=== PATIENT | female | born 1945 | race Caucasian/White ===

== ENCOUNTER 2016-11-04 21:52 | Emergency (ER) | payer MEDICARE, OTHER ==
[2016-11-05 07:56] LABS: HEMOGLOBIN 15.4 gm/dl (12.3-15.3); RED BLOOD COUNT 5.13 M/UL (4.00-5.10); WHITE BLOOD COUNT 6.7 K/UL (4.5-11.0)
== END 2016-11-05 10:10 | disposition home or self-care (01) ==
LOC: ER1 21:52
PROVIDERS: Physician Assistant
DX: J06.9 Acute upper respiratory infection, unspecified (principal); E11.22 Type 2 diabetes mellitus with diabetic chronic kidney disease; I12.9 Hypertensive chronic kidney disease with stage 1 through stage 4 chronic kidney disease, or unspecified chronic kidney disease; N18.9 Chronic kidney disease, unspecified; J44.9 Chronic obstructive pulmonary disease, unspecified; Z88.5 Allergy status to narcotic agent; Z88.8 Allergy status to other drugs, medicaments and biological substances
CPT/HCPCS: 36415; 71020; 80053; 81001; 85025; 87040; 87081; 87880; 99283

== ENCOUNTER → 2020-09-28 | Outpatient (CLI) | payer MEDICARE, OTHER ==
[~2020-09-28] MED LIST: ADVAIR 250-501 EACH INH; ALBUTEROL S5 MG/1 ML INH; ASPIRIN CHEWABL81 MG PO; BUMETANIDE1 MG PO; COREG 3.125M3.125 MG PO; COZAAR100 MG PO; CYANOCOBAL1000 MCG/1 INJ; FEOSOL325 MG PO; GOLYTELY 40004000 ML PO; HYDRALAZINE HCL50 MG PO; IMDUR ER TAB 6060 MG PO; LINZESS145 MCG PO; NITROSTAT0.4 MG SL; NOVOLOG 10100 UNITS1 INJ; PATADAY2.5 ML EYEBOTH; PROLIA INJ60 MG/1 ML SC; RANEXA500 MG PO; ROCALTROL CA0.25 MCG PO; VITAMIN D31000 UNI1 PO; ZANTAC150 MG PO; ZYLOPRIM 300 M300 MG PO
== END ==
LOC: EXRD 13:39
DX: M81.0 Age-related osteoporosis without current pathological fracture (principal); M85.88 Other specified disorders of bone density and structure, other site
CPT/HCPCS: 77080

== ENCOUNTER → 2021-04-20 | Outpatient (CLI) | payer MEDICARE, OTHER | LOC: LAB 10:15 | PROVIDERS: Internal Medicine Nephrology | DX: E11.21 Type 2 diabetes mellitus with diabetic nephropathy (principal); E11.22 Type 2 diabetes mellitus with diabetic chronic kidney disease; N18.4 Chronic kidney disease, stage 4 (severe) | CPT/HCPCS: 36415; 80048; 84681 ==

== ENCOUNTER → 2021-05-16 | Day surgery (SDC) | payer MEDICARE, OTHER | END | disposition home or self-care (01) | LOC: OR 06:39 | DX: K22.2 Esophageal obstruction (principal); K44.9 Diaphragmatic hernia without obstruction or gangrene; R13.14 Dysphagia, pharyngoesophageal phase; K21.9 Gastro-esophageal reflux disease without esophagitis; G47.33 Obstructive sleep apnea (adult) (pediatric); I25.10 Atherosclerotic heart disease of native coronary artery without angina pectoris; I10 Essential (primary) hypertension; E11.9 Type 2 diabetes mellitus without complications; E66.01 Morbid (severe) obesity due to excess calories; Z68.41 Body mass index [BMI] 40.0-44.9, adult; Z95.1 Presence of aortocoronary bypass graft; Z88.5 Allergy status to narcotic agent; Z79.82 Long term (current) use of aspirin; Z79.4 Long term (current) use of insulin; Z79.899 Other long term (current) drug therapy; Z88.0 Allergy status to penicillin | CPT/HCPCS: 82962; J2704; J7040 ==

== ENCOUNTER → 2021-10-22 | Outpatient (CLI) | payer MEDICARE, OTHER | LOC: SLEEP-COR 14:59 | DX: J30.9 Allergic rhinitis, unspecified (principal); I20.9 Angina pectoris, unspecified; I44.30 Unspecified atrioventricular block; I10 Essential (primary) hypertension; G47.33 Obstructive sleep apnea (adult) (pediatric) | CPT/HCPCS: 95810 ==

== ENCOUNTER → 2021-12-28 | Outpatient (CLI) | payer MEDICARE, OTHER | LOC: MAMO 08:00 | DX: Z12.31 Encounter for screening mammogram for malignant neoplasm of breast (principal); I25.10 Atherosclerotic heart disease of native coronary artery without angina pectoris; I12.9 Hypertensive chronic kidney disease with stage 1 through stage 4 chronic kidney disease, or unspecified chronic kidney disease; E11.22 Type 2 diabetes mellitus with diabetic chronic kidney disease; N18.4 Chronic kidney disease, stage 4 (severe); E78.2 Mixed hyperlipidemia; E11.42 Type 2 diabetes mellitus with diabetic polyneuropathy; G47.33 Obstructive sleep apnea (adult) (pediatric); Z88.1 Allergy status to other antibiotic agents; Z88.0 Allergy status to penicillin; Z88.5 Allergy status to narcotic agent | CPT/HCPCS: 77063; 77067 ==

== ENCOUNTER 2022-02-24 01:37 | Emergency (ER) | payer MEDICARE, OTHER | END 2022-02-24 08:30 | disposition home or self-care (01) | LOC: ER1 01:37 | DX: S93.601A Unspecified sprain of right foot, initial encounter (principal); R07.81 Pleurodynia; E11.9 Type 2 diabetes mellitus without complications; I11.9 Hypertensive heart disease without heart failure; Z88.0 Allergy status to penicillin; Z88.5 Allergy status to narcotic agent; W07.XXXA Fall from chair, initial encounter | CPT/HCPCS: 71045; 73610; 73630; 99284 ==

== ENCOUNTER → 2022-04-03 | Outpatient (CLI) | payer MEDICARE, OTHER | LOC: EXRD 03-11 10:30 | DX: M81.0 Age-related osteoporosis without current pathological fracture (principal) | CPT/HCPCS: 77080 ==